=== PATIENT | female | born 1960 | race Caucasian/White ===

== ENCOUNTER 2016-12-16 05:44 | Day surgery (SDC) | payer OTHER ==
[~2016-12-16] VITALS: Ht 157.5 cm; Wt 81.8 kg
--- NOTE | 2016-12-16 05:59 | History and Physical ---
History & Physical CC: Bilateral lower extremity varicose veins HPI: Mrs. Bolden states that she has had this discomfort for a long time. She states that it causes her an aching pain 24 hours a day. It is slightly worse when she does some activities versus others, when she is standing for long periods of time, for instance it causes her significant pain, so she avoids doing that. She also avoids walking stairs if possible and she avoids walking long distances. This also causes her discomfort to be slightly worse. She has had these varicosities for a number of years, has not had any previous procedures performed. She states that she has no known history of arterial disease or lumbar spinal problems. She has not worn compression stockings in the past, although she states she was given a prescription by her referring doctor. She states that she preferred to wait make sure that these are what Dr. Rhoades would like her to wear. She does not have a history of DVT in the past. She states that she currently has a head cold, which is slowly resolving. She denies fevers, chills, nausea, vomiting, chest pain, shortness of breath, dizziness, rest pain, claudication, nonhealing wounds, ulcers, or other complaints. ALLERGIES: No known allergies. HOME MEDICATIONS: Reconciled on the chart and include amitriptyline and aspirin. PAST MEDICAL HISTORY: Positive for carotid disease for which she sees Dr. Hawk, small vessel arterial disease for which she also sees Dr. Avelar. PAST SURGICAL HISTORY: Her past surgical history is positive for breast biopsy , appendectomy, splenectomy, and tonsillectomy. FAMILY HISTORY: Positive for CHF and hypertension in her mother, prostate carcinoma in her father. SOCIAL HISTORY: The patient states that she presently smokes about 1 pack of cigarettes per day, although she is attempting to quit. REVIEW OF SYSTEMS: Her review of systems is negative for fatigue, fevers, sweats, weight loss, abnormal moles or rashes, vision changes or photophobia, ear pain, sinus problems, or sore throat. She does have a cough and rhinorrhea , which she states is nonproductive. She denies edema. She denies abdominal pain, nausea, vomiting, diarrhea, constipation, dysuria, hematuria, headaches, dizziness, weakness, or seizures. PHYSICAL EXAMINATION: Her vital signs today were as follows, 120/88 in the right arm, 132/84 in the left arm, heart rate of 99, and oxygen 98% on room air. The patient is 157 cm tall and weighs 82 kilograms. Constitutional: In general, the patient is a generally healthy-appearing, well-nourished, well- developed, middle-aged female in no acute distress. She ambulates without assistance and is active, alert and oriented x4 with normal recent and remote memory. Her head is normocephalic, atraumatic. Eyes are EOMI. Her ENMT exam demonstrates no hearing loss, rhinorrhea, or pharyngeal erythema. Her neck is supple, nontender with midline trachea without masses or crepitus. Lung exam demonstrates no dyspnea. They are decreased throughout, but are clear to auscultation bilaterally. Cardiovascular exam demonstrates a nondisplaced apical impulse with a regular rate and rhythm without murmurs, lifts, heaves, thrills, or gallops. Her peripheral pulses are full and equal in all extremities unless otherwise noted, specifically they are normal in her carotid , brachial, radial, and femoral pulses. Her bilateral distal pulses are +2 with a nonpalpable PT on the right. She has no bruits in her carotid, abdominal , or femoral area. Her abdomen is soft, nontender with normoactive bowel sounds in all 4 quadrants without guarding or rebound. There is no flank or CVA tenderness. I am unable to appreciate any pulsatile mass. Her musculoskeletal exam demonstrates normal tone and strength for age. Bilateral upper extremities demonstrate no cyanosis, edema, clubbing, varicosities or ulcers of bilateral lower extremities demonstrate varicosities. These are many in number and large in caliber, primarily the medial distal left thigh, as well as posterior knee and medial posterior calf area. Some of these do extend down into her foot. Her right leg varicosities are primarily in her mid and distal thigh, as well as her lateral posterior right lower leg. Neurologically, patient has grossly intact cranial nerves and grossly intact sensation. ASSESSMENT AND PLAN: Chronic venous insufficiency of the left lower extremity Plan: Patient is admitted for radiofrequency ablation of the left greater saphenous vein. I have discussed the risks options and benefits of the procedure with the patient. The patient understands the risks options and benefits and agrees to the procedure.
[2016-12-16] MEDS ORDERED: SULFAMETHOXAZOLE/TRIMETHOPRIM DS 800/160MG TAB PO SCH (06:00)
[2016-12-16] MEDS ORDERED: DIAZEPAM 5MG TAB PO SCH (06:00)
[2016-12-16] MEDS ORDERED: GABA-112 PO (06:04)
[2016-12-16] MEDS ORDERED: ASPI81TA28 PO (06:04)
[2016-12-16 06:08] VITALS: BP 115/63; PULSE 80; TEMP 36.4; O2SAT 97; Ht 157.5 cm; Wt 81.8 kg
[2016-12-16] MEDS ORDERED: IBUP-1428 PO (06:22)
[2016-12-16] MEDS ORDERED: LIDOCAINE/EPINEPHRINE 1% INJ 50 ML VIAL ONE (07:23)
[2016-12-16] MEDS ORDERED: SODIUM BICARB 8.4% INJ 50 MEQ/50 ML SYR IV ONE (07:23)
[2016-12-16] MEDS ORDERED: LIDOCAINE HCL 1% 20 ML VIAL ONE (07:23)
--- NOTE | 2016-12-16 07:57 | History & Physical Bridge Note ---
H&P Re-Evaluation Bridge Note: I have examined the patient, reviewed the History & Physical and in the interval since the performance of the History & Physical I have noted the following changes of clinical significance: No changes noted
[2016-12-16] MEDS ORDERED: LIDOCAINE HCL 1% 20 ML VIAL SQ ONE (08:35)
[2016-12-16] MEDS ORDERED: ORM MISCELLANEOUS MED XX ONE (08:49)
[2016-12-16 09:05] VITALS: BP 106/57; TEMP 36.3; O2SAT 96
--- NOTE | 2016-12-16 09:06 | [facility] Post Operative Brief Note ---
Immediate Operative Summary Operative Date Dec 16, 2016. Pre-Operative Diagnosis Venous Insufficiency Post-Operative Diagnosis same Procedure(s) Performed Left Lower Extremity Greater Saphenous Vein Radiofrequency Ablation Surgeon Dr. Rhoades Waste Minimization Technician Surgeon(s) None Estimated Blood Loss 0 Findings common femoral vein patent at end Specimens None Anesthesia Local with temulsen infusion Complication(s) None Disposition
--- NOTE | 2016-12-16 09:08 | Discharge Instructions ---
Discharge Instructions Visit Reason for Visit: Complicated Varicose Veins Discharge Discharge Diagnosis / Problem: Chronic venous insufficiency of the lower extremities Discharge Goals Goal(s): Therapeutic intervention Activity Recommendations Activity Limitations: per Instructions/Follow-up section Anesthesia . Post Anesthesia Instructions: If you have had General Anesthesia or IV Sedation: * Do not drive today. * Resume driving when surgeon permits. * Do not make important decisions or sign legal documents today. * Call surgeon for: 1. Temperature elevations greater than 101 degrees F. 2. Uncontrollable pain. 3. Excessive bleeding. 4. Persistent nausea and vomiting. 5. Medication intolerance (nausea, vomiting or rash). * For nausea and vomiting use only clear liquids such as: tea, soda, bouillon until nausea subsides, then gradually increase diet as tolerated. * If you have any concerns or questions, call your surgeon's office. If physician is unavailable and it is an emergency, call 911 or go to the nearest emergency room. . Instructions / Follow-Up Instructions / Follow-Up Call [phone] to schedule a follow up appointment if one not already scheduled. SPECIAL CARE INSTRUCTIONS: Wraps/Dressings: * A compression wrap will be applied to your legs after the procedure and should remain in place until the morning after. * Remove the bandage if it rolls down or causes pain. Rewrap the leg starting at the bottom of the leg, just above the toes. Apply firm, but gently pressure when applying the wrap. * Avoid getting the wrap wet. * You may shower the following morning after you remove the wraps/dressings. Compression Stockings: * Begin wearing compression stockings the day following your procedure (after you have removed the wraps/dressings and showered). * Compression stockings should be put on in the morning and removed right before going to bed. * Stockings should be worn for 2 weeks following the procedure. * YOU MUST OBTAIN THE PRESCRIBED STOCKINGS PRIOR TO YOUR PROCEDURE. Activity: * Walk 4-5 times around the house after you come home from your procedure. * Elevate your leg(s) while sitting. * You may resume your normal activities as tolerated after 48 hours. * AVOID HEAVY LIFTING FOR 1 WEEK AND/OR CAR TRIPS OVER 1 HOUR OR FLYING FOR 2 WEEKS. Possible Complications: * Swelling/Bruising/Soreness - You may have some swelling, bruising and/or soreness after the procedure. you may also feel a "cord or rope" under the skin. This is normal. You may take Tylenol or Ibuprofen for pain as directed. Call our office ([phone]) if you develop: * Any redness, severe swelling, pain in the calf and/or drainage from the puncture sites You will be receiving a call from the Vascular Surgery Nurse after you are discharged. FOLLOW UP VISIT: You will be scheduled for an ultrasound of your leg(s) 4-5 days after the procedure. You will have a follow up visit with your surgeon in 2-4 weeks. If these have not already been scheduled, please call our office at to schedule. Diet Recommendations Recommended Home Diet: resume previous diet Procedures Procedures Performed: Left Lower Extremity Greater Saphenous Vein Radiofrequency Ablation Pending Studies Studies pending at discharge: no Medical Emergencies . Who to Call and When: Medical Emergencies: If at any time you feel your situation is an emergency, please call 911 immediately. . Non-Emergent Contact Non-Emergency issues call your: Surgeon . . "Provider Documentation" section prepared by Ag Rhoades.
[2016-12-16] MEDS ORDERED: OXYCODONE/ACETAMINOPHEN 5-325 TAB PO PRN (09:15)
[2016-12-16 09:20] VITALS: BP 112/73; PULSE 80; O2SAT 95
[2016-12-16 09:35] VITALS: BP 101/62; PULSE 84; O2SAT 94
[2016-12-16 09:50] VITALS: BP 119/75; PULSE 76; O2SAT 94
== END 2016-12-16 10:10 | disposition home or self-care (01) ==
LOC: C.ACU 05:44
PROVIDERS: ATTEND Surgery Vascular Surgery
DX: I87.2 Venous insufficiency (chronic) (peripheral) (principal); I83.813 Varicose veins of bilateral lower extremities with pain; F17.210 Nicotine dependence, cigarettes, uncomplicated